=== PATIENT | male | born 1985 | race Two or more races ===

== ENCOUNTER 2020-08-18 17:09 | Emergency (ER) | payer MEDICAID, OTHER ==
[~2020-08-18] VITALS: Ht 177.8 cm; Wt 72.6 kg
[2020-08-18 17:15] VITALS: BP 136/81
--- NOTE | 2020-08-18 17:20 | NUR ---
bibself c/o LLE swelling for 3days, denies any injury. vs checked. awaiting md anguiano
[2020-08-18] MEDS ORDERED: SULF1TAB48 PO (17:43)
[2020-08-18] MEDS ORDERED: CEPH-570 PO (17:43)
== END 2020-08-18 18:03 | disposition home or self-care (01) ==
LOC: ER 17:15
DX: L03.116 Cellulitis of left lower limb (principal)